=== PATIENT | female | born 1995 | race Two or more races ===

== ENCOUNTER 2020-12-07 11:01 | Emergency (ER) | payer MEDICAID, OTHER ==
[~2020-12-07] VITALS: Ht 162.6 cm; Wt 117.9 kg
[2020-12-07 12:13] LABS: Basophils # (auto) 0 10 ^3/uL (0-0.2); Basophils % (auto) 0.6 % (0.0-2.0); Eosinophils # (auto) 0.1 10 ^3/uL (0-0.8); Eosinophils % (auto) 1.6 % (0.0-7.0); Hematocrit 41.2 % (36.0-46.0); Lymphocytes % (auto) 35.6 % (10.0-50.0); Mean Corpuscular Hemoglobin 29.7 pg (28.0-32.0); Mean Corpuscular Hgb Conc. 33.9 g/dL (32.0-36.0); Mean Corpuscular Volume 87.6 fL (80.0-100.0); Monocytes # (auto) 0.3 10 ^3/uL (0-1.3); Monocytes % (auto) 6.1 % (0.0-12.0); Neutrophils # (auto) 3.2 10 ^3/uL (1.6-8.6); Neutrophils % (auto) 56.1 % (37.0-80.0); Nucleated Red Blood Cells % 0.1 %; Platelet Count (auto) 302 10^3/uL (140-450); Red Cell Distribution Width 13.2 % (11.8-14.3); White Blood Cell 5.7 10^3/uL (4.4-10.8)
[2020-12-07 12:28] LABS: Chloride 107 mmol/L (98-107); Potassium 3.9 mmol/L (3.5-5.1); Sodium 138 mmol/L (136-145)
[2020-12-07 12:36] LABS: Anion Gap 7 (5-15); BUN/Creatinine Ratio 12.9; Blood Urea Nitrogen 8 mg/dL (7-18); Calcium 8.7 mg/dL (8.5-10.1); Carbon Dioxide 24 mmol/L (21-32); GFR African American 152 mL/min; GFR Non-African American 126 mL/min; Glucose 88 mg/dL (74-106)
[2020-12-07] MEDS ORDERED: IOHEXOL 350 MG/ML 100ML IJ ONE (13:01)
[2020-12-07] MEDS ORDERED: ACETAMINOPHEN 500 MG TAB PO ONE (13:15)
[2020-12-07 13:40] VITALS: BP 122/65
== END 2020-12-07 14:29 | disposition home or self-care (01) ==
LOC: ER 11:01
DX: S46.812A Strain of other muscles, fascia and tendons at shoulder and upper arm level, left arm, initial encounter (principal); S46.811A Strain of other muscles, fascia and tendons at shoulder and upper arm level, right arm, initial encounter; R20.0 Anesthesia of skin; E66.01 Morbid (severe) obesity due to excess calories; R07.89 Other chest pain; Z68.41 Body mass index [BMI] 40.0-44.9, adult; X58.XXXA Exposure to other specified factors, initial encounter; Y93.89 Activity, other specified; Y92.89 Other specified places as the place of occurrence of the external cause; Y99.8 Other external cause status
CPT/HCPCS: 36415; 71275; 80048; 84484; 85025; 85379; 93005; 93971; 99285; Q9967

== ENCOUNTER 2021-03-16 17:12 | Emergency (ER) | payer MEDICAID ==
[~2021-03-16] VITALS: Ht 162.6 cm; Wt 109.8 kg
[2021-03-16 17:54] LABS: Urine Bacteria NONE SEEN /hpf (None Seen); Urine Blood 3+ /uL (Negative); Urine Mucus FEW (None Seen); Urine WBC 2185 /hpf (0 - 5); Urine WBC Clumps PRESENT /hpf (None Seen)
[2021-03-16 20:55] VITALS: BP 135/87
== END 2021-03-16 21:20 | disposition home or self-care (01) ==
LOC: ER 17:12
DX: N39.0 Urinary tract infection, site not specified (principal); R30.0 Dysuria; R39.11 Hesitancy of micturition; R35.0 Frequency of micturition; R39.15 Urgency of urination; R31.9 Hematuria, unspecified; E66.01 Morbid (severe) obesity due to excess calories; Z68.41 Body mass index [BMI] 40.0-44.9, adult
CPT/HCPCS: 81001

== ENCOUNTER 2024-01-31 11:11 | Inpatient (IN) | payer MEDICAID ==
[~2024-01-31] VITALS: Ht 162.6 cm; Wt 107.4 kg
[2024-01-31 11:40] LABS: Basophils # (auto) 0 10 ^3/uL (0-0.2); Basophils % (auto) 0.2 % (0.0-2.0); Eosinophils # (auto) 0.3 10 ^3/uL (0-0.8); Eosinophils % (auto) 3.1 % (0.0-7.0); Hematocrit 45.6 % (36.0-46.0); Hemoglobin 15.7 g/dL (12.2-16.2); Lymphocytes # (auto) 2.2 10 ^3/uL (0.4-5.4); Lymphocytes % (auto) 26.5 % (10.0-50.0); Mean Corpuscular Hemoglobin 31.3 pg (28.0-32.0); Mean Corpuscular Hgb Conc. 34.4 g/dL (32.0-36.0); Monocytes # (auto) 0.5 10 ^3/uL (0-1.3); Monocytes % (auto) 6.2 % (0.0-12.0); Neutrophils # (auto) 5.3 10 ^3/uL (1.6-8.6); Nucleated Red Blood Cells % 0.1 %; Red Blood Cells 5.01 10^6/uL (4.0-5.20); White Blood Cell 8.3 10^3/uL (4.4-10.8)
[2024-01-31] MEDS: SODIUM CHLORIDE 0.9% 1,000 ML IV ONE (11:57)
[2024-01-31 12:02] LABS: Alanine Aminotransferase 495 U/L (7-40); Albumin 4.5 g/dL (3.2-4.8); Alkaline Phosphatase 110 U/L (46-116); Anion Gap 7 (5-15); Aspartate Aminotransferase 150 U/L (13-40); BUN/Creatinine Ratio 9.9 (10.0-20.0); Bilirubin, Total 0.9 mg/dL (0.2-1.0); Blood Urea Nitrogen 8 mg/dL (9-23); Calcium 9.8 mg/dL (8.7-10.4); Carbon Dioxide 24 mmol/L (20-30); Chloride 107 mmol/L (98-107); Glucose 91 mg/dL (74-106); Potassium 3.9 mmol/L (3.5-5.1); Sodium 138 mmol/L (136-145); Total Protein 7.7 g/dL (5.7-8.2)
[2024-01-31] MEDS: FAMOTIDINE (10MG/ML) 2ML VL IV ONE (12:12)
[2024-01-31] MEDS: ONDANSETRON HCL 4 MG/2 ML VIAL IV ONE (12:12)
[2024-01-31] MEDS: MORPHINE SULFATE 4 MG/ML SYR/VIAL IV ONE (12:13)
[2024-01-31 12:17] LABS: Hepatitis B Surface Antigen Negative (Negative)
[2024-01-31 12:34] LABS: Lipase 39 U/L (12-53)
[2024-01-31 12:36] LABS: Erythrocyte Sedimentation Rate 14 mm/hr (0-20)
[2024-01-31 12:37] LABS: Hepatitis A Ab IgM Negative
[2024-01-31 12:38] LABS: Hepatitis B Core IgM Negative; Hepatitis C Antibody Negative (Negative)
[2024-01-31 12:44] LABS: % Iron Saturation 39.4 % (15-50)
[2024-01-31] MEDS: IOHEXOL 300 MG/ML 100ML BOTTLE IJ ONE (12:48)
[2024-01-31 13:59] LABS: Urine Bacteria FEW /hpf (None Seen); Urine Blood Negative /uL (Negative); Urine Clarity Clear (Clear); Urine Color Yellow (Yellow); Urine Mucus FEW (None Seen); Urine Protein, UAD 1+ (Negative); Urine Urobilinogen Normal (Negative); Urine WBC 14 /hpf (0 - 5)
[2024-01-31 14:04] LABS: Urine Specific Gravity > 1.035 (1.001-1.035)
[2024-01-31] MEDS ORDERED: DOCUSATE SOD 100 MG CAP PO PRN (15:30)
[2024-01-31] MEDS ORDERED: MORPHINE SULFATE INJ 2 MG/ml SYRG IV PRN ×2 (15:30→16:30)
[2024-01-31] MEDS ORDERED: HYDROcodone-ACET 5/325MG TAB PO PRN (15:30)
[2024-01-31] MEDS ORDERED: ACETAMINOPHEN 325 MG TAB PO PRN (15:30)
[2024-01-31] MEDS: cefTRIAXone 1GM/50ML D5W 50 ML IV ONE (15:45)
[2024-01-31] MEDS ORDERED: NITROGLYCERIN 0.4 MG SL TAB SL PRN (16:30)
[2024-01-31] MEDS ORDERED: IBUPROFEN 600 MG TAB PO PRN (17:45)
[2024-01-31] MEDS: SODIUM CHLORIDE 0.9% 1,000 ML IV SCH (19:32)
[2024-01-31 20:13] VITALS: RESP 17
[2024-02-01] VITALS (7 sets, daily range): BP systolic 104–131; BP diastolic 52–82; PULSE 64–76; RESP 16–17; TEMP 97.4–98.9; O2SAT 97–100
[2024-02-01] MEDS ORDERED: CHOL20007 PO (05:08)
[2024-02-01] MEDS ORDERED: SEMA0.5I SC (05:08)
[2024-02-01] MEDS ORDERED: [UNRECOGNIZED DRUG - CODE] PO (05:08)
[2024-02-01] MEDS: ONDANSETRON HCL 4 MG/2 ML VIAL IV PRN (05:28)
[2024-02-01 07:02] LABS: Basophils # (auto) 0 10 ^3/uL (0-0.2); Basophils % (auto) 0.1 % (0.0-2.0); Eosinophils # (auto) 0.3 10 ^3/uL (0-0.8); Hematocrit 39.8 % (36.0-46.0); Hemoglobin 13.6 g/dL (12.2-16.2); Lymphocytes # (auto) 2.1 10 ^3/uL (0.4-5.4); Lymphocytes % (auto) 31.6 % (10.0-50.0); Mean Corpuscular Hemoglobin 31.1 pg (28.0-32.0); Mean Corpuscular Hgb Conc. 34.2 g/dL (32.0-36.0); Mean Corpuscular Volume 90.8 fL (80.0-100.0); Monocytes # (auto) 0.5 10 ^3/uL (0-1.3); Monocytes % (auto) 6.9 % (0.0-12.0); Neutrophils # (auto) 3.8 10 ^3/uL (1.6-8.6); Neutrophils % (auto) 57.4 % (37.0-80.0); Red Blood Cells 4.38 10^6/uL (4.0-5.20); Red Cell Distribution Width 12.7 % (11.8-14.3); White Blood Cell 6.6 10^3/uL (4.4-10.8)
[2024-02-01 07:51] LABS: Alanine Aminotransferase 495 U/L (7-40); Albumin 3.8 g/dL (3.2-4.8); Alkaline Phosphatase 94 U/L (46-116); Anion Gap 7 (5-15); BUN/Creatinine Ratio 10.8 (10.0-20.0); Blood Urea Nitrogen 8 mg/dL (9-23); Calcium 9.2 mg/dL (8.7-10.4); Carbon Dioxide 23 mmol/L (20-30); Chloride 109 mmol/L (98-107); Glucose 79 mg/dL (74-106); Potassium 3.8 mmol/L (3.5-5.1); Sodium 139 mmol/L (136-145)
[2024-02-01 07:52] LABS: Bilirubin, Total 0.6 mg/dL (0.2-1.0); Total Protein 6.9 g/dL (5.7-8.2)
[2024-02-01 07:54] LABS: Aspartate Aminotransferase 165 U/L (13-40)
[2024-02-01 08:06] LABS: Anti-Nuclear Antibody Direct Negative (Negative)
[2024-02-01] MEDS: cefTRIAXone 1GM/50ML D5W 50 ML IV SCH (08:32)
[2024-02-01] MEDS: FAMOTIDINE (10MG/ML) 2ML VL IV SCH (08:39)
[2024-02-01 08:49] LABS: Hepatitis B Surface Antigen Negative (Negative)
[2024-02-01 09:10] LABS: Hepatitis C Antibody Negative (Negative)
[2024-02-02] VITALS (8 sets, daily range): BP systolic 103–128; BP diastolic 62–81; PULSE 63–90; RESP 17–20; TEMP 97.6–98.6; O2SAT 93–100
[2024-02-02 10:02] LABS: Alanine Aminotransferase 471 U/L (7-40); Albumin 3.9 g/dL (3.2-4.8); Alkaline Phosphatase 94 U/L (46-116); Anion Gap 5 (5-15); Aspartate Aminotransferase 126 U/L (13-40); Calcium 9.3 mg/dL (8.7-10.4); Carbon Dioxide 25 mmol/L (20-30); Chloride 109 mmol/L (98-107); Glucose 115 mg/dL (74-106); Potassium 3.6 mmol/L (3.5-5.1); Sodium 139 mmol/L (136-145)
[2024-02-02 10:03] LABS: Bilirubin, Total 0.7 mg/dL (0.2-1.0); Total Protein 6.8 g/dL (5.7-8.2)
[2024-02-02 10:10] LABS: BUN/Creatinine Ratio 7.9 (10.0-20.0); Blood Urea Nitrogen < 5 mg/dL (9-23)
[2024-02-02 23:49] LABS: Amphetamine Screen, Urine Neg (NEGATIVE); Benzodiazephine Screen, Urine Neg (NEGATIVE)
[2024-02-02 23:50] LABS: Barbiturate Scree,Urine Neg (NEGATIVE); Cannabinoid Screen, Urine Neg (NEGATIVE); Cocaine Screen, Urine Neg (NEGATIVE); Opiate Scree,Urine Neg (NEGATIVE); Phencyclidine Screen, Urine Neg (NEGATIVE)
[2024-02-03 00:59] VITALS: BP 121/79; PULSE 68; RESP 18; TEMP 98.8; O2SAT 98
[2024-02-03 05:00] VITALS: BP 118/58; PULSE 63; RESP 18; TEMP 98; O2SAT 96
[2024-02-03 09:00] VITALS: BP 104/60; PULSE 69; RESP 16; TEMP 97.8; O2SAT 97
[2024-02-03] MEDS ORDERED: LEVO500T91 PO (11:44)
[2024-02-03] MEDS ORDERED: ZOFR4T PO (11:46)
[2024-02-03 12:38] VITALS: BP 123/80; PULSE 67; RESP 18; TEMP 98; O2SAT 97
[2024-02-03 13:00] VITALS: BP 123/80; PULSE 67; RESP 18; TEMP 98; O2SAT 97
== END 2024-02-03 15:09 | disposition home or self-care (01) | DRG 463 ==
LOC: ER 11:11 → OVERFLOW 16:27 → CENTRAL 02-01 04:33
PROVIDERS: ADMIT Nurse Practitioner Family; ATTEND Internal Medicine
DX: N30.00 Acute cystitis without hematuria (principal); E66.01 Morbid (severe) obesity due to excess calories; T50.995A Adverse effect of other drugs, medicaments and biological substances, initial encounter; R74.01 Elevation of levels of liver transaminase levels; Z68.41 Body mass index [BMI] 40.0-44.9, adult; Y92.89 Other specified places as the place of occurrence of the external cause
CPT/HCPCS: 36415; 74177; 76705; 80053; 80074; 80307; 81001; 82728; 83540; 83550; 83690; 84702; 85025; 85652; 86038; 86803; 87086; 87340; G0378; J2405; J3490